=== PATIENT | male | born 1985 | race Caucasian/White ===

== ENCOUNTER 2023-10-12 14:08 | Outpatient (CLI) | payer OTHER, SELFPAY ==
--- NOTE | 2023-10-12 14:27 | XRR_ITS ---
PROCEDURE INFORMATION: Exam: XR Chest Exam date and time: 10/12/2023 2:55 PM Age: 38 years old Clinical indication: Screening exam; Other screening; Additional info: Regulated program monitoring TECHNIQUE: Imaging protocol: Radiologic exam of the chest. Views: 2 views. COMPARISON: No relevant prior studies available. FINDINGS: Lungs: Unremarkable. No consolidation. Pleural spaces: Unremarkable. No pleural effusion. No pneumothorax. Heart/Mediastinum: Unremarkable. No cardiomegaly. Bones/joints: Unremarkable. XR/XR chest 2V* [id number] IMPRESSION: No acute findings.
== END 2023-10-12 14:09 | disposition home or self-care (01) ==
LOC: RAD 14:22
PROVIDERS: PCP Family Medicine
DX: Z01.89 Encounter for other specified special examinations (principal); Z13.89 Encounter for screening for other disorder
CPT/HCPCS: 71046

== ENCOUNTER → 2023-11-24 08:45 | Outpatient (BNVA) | payer OTHER, SELFPAY | PROVIDERS: PCP Family Medicine; Visit Provider Family Medicine | DX: Z00.00 Encounter for general adult medical examination without abnormal findings (principal); Z13.6 Encounter for screening for cardiovascular disorders; R73.9 Hyperglycemia, unspecified | CPT/HCPCS: 80053; 80061; 83036; 85025 ==

== ENCOUNTER → 2023-11-27 07:41 | Outpatient (BNVA) | payer OTHER, MEDICAID, SELFPAY | PROVIDERS: PCP Family Medicine; Visit Provider Podiatrist Foot & Ankle Surgery | DX: E11.621 Type 2 diabetes mellitus with foot ulcer; L97.512 Non-pressure chronic ulcer of other part of right foot with fat layer exposed | CPT/HCPCS: 73630 ==

== ENCOUNTER 2023-12-12 12:38 | Outpatient (CLI) | payer OTHER, MEDICAID, SELFPAY ==
[2023-12-12 13:23] LABS: Glucose Fasting 114 mg/dL (74-109)
[2023-12-12 14:19] LABS: Glucose 1 Hour 182 mg/dL
== END 2023-12-12 12:39 | disposition home or self-care (01) ==
LOC: LAB 12:41
PROVIDERS: PCP Family Medicine; Visit Provider Thoracic Surgery (Cardiothoracic Vascular Surgery)
DX: E11.621 Type 2 diabetes mellitus with foot ulcer (principal); L97.509 Non-pressure chronic ulcer of other part of unspecified foot with unspecified severity
CPT/HCPCS: 82950

== ENCOUNTER → 2024-09-23 11:54 | Outpatient (BNVA) | payer OTHER, SELFPAY | DX: R73.9 Hyperglycemia, unspecified (principal) | CPT/HCPCS: 80053; 83036; 85025 ==

== ENCOUNTER 2025-03-06 14:40 | Inpatient (IN) | payer OTHER, SELFPAY ==
--- NOTE | 2025-03-06 14:44 | ED.C_ITS ---
HPI - Psych 2 General: Chief Complaint: Psychiatric Symptoms Stated Complaint: SI Time Seen by Provider: 03/06/25 14:40 Source: patient Mode of arrival: ambulatory Limitations: no limitations History of Present Illness: Patient is a 39-year-old male who presents today due to suicidal ideation. Patient states that he recently went through a break up and had a family member pass away-both have negatively affected his mental health and it has been progressively declining for the past 5 days. He is now having suicidal ideation. States he has thought about a plan for overdose. Reports previous OD attempt back in his 20s. He does admit to ingesting a white powder substance he got from a friend a few days ago in a suicide attempt. Denies HI. Patient notes that it he is supposed to be taking citalopram for baseline anxiety, however he has not been taking as prescribed. MD complaint: suicidal ideation and feels depressed Onset (ago): day(s) Duration: intermittent History of same: No Relieving factors: none Exacerbating factors: other (stress- of family member, recent break up) Context: not taking psychiatric medications Associated psychiatric symptoms: suicidal ideation and auditory hallucinations Associated symptoms: Reports depression and suicidal ideation; Deny homicidal ideation Treatments prior to arrival: none If self harm: admits thoughts of self harm Related Data Home Medications ?Medication ?Instructions ?Recorded ?Confirmed No Known Home Medications 03/06/2502/21 Allergies Allergy/AdvReac Type Severity Reaction Status Date / Time penicillin G Allergy Unknown Verified 09/23/24 11:26 Review of Systems 2 Const: Denies: fever(s), chills or body aches Card: Denies: chest pain or palpitations Resp: Denies: dyspnea GI: Denies: abdominal pain Skin/Breast: Denies: rash Neuro: Denies: headache(s) Psych: Reports: anxiety, depression and suicidal ideation; Denies: paranoia or homicidal ideation PFSH ED 2 PFSH: Medical History Erectile dysfunction Eczema Encounter to establish care Social anxiety disorder Surgical History History of appendectomy 2005 Family History Grandmother Diabetes Social History Smoking and tobacco/nicotine status: never used tobacco/nicotine Alcohol intake: current Alcohol intake frequency: few times a month Additional social history: works for [employer]. Physical Exam 2 Const: COMMON NORMALS: no acute distress, patient oriented x3, no limitations, alert and well nourished GENERAL APPEARANCE: anxious NUTRITIONAL APPEARANCE: obese ORIENTATION/CONSCIOUSNESS: Yes awake, Yes oriented to person, Yes oriented to place and Yes oriented to time Eye: GENERAL EYE: appearance normal, both eyes and all related structures Resp: COMMON NORMALS: normal respiratory effort and clear to auscultation bilaterally AUSCULTATION: clear to auscultation bilaterally Cardio: COMMON NORMALS: regular rate and regular rhythm RATE: regular rate RHYTHM: regular rhythm Extremity: GENERAL: Yes normal exam except as noted Neuro: DOUGLAS COMA SCALE: document GCS findings Douglas coma scale eye opening: Spontaneous Douglas coma scale verbal response: Orientated Douglas coma scale motor response: Obey commands Douglas coma scale total score: 15 COMMON NORMALS: patient oriented x3 SENSORIUM/ORIENTATION: Yes alert, Yes oriented to person, Yes oriented to place and Yes oriented to time Psych: COMMON NORMALS: mental status grossly normal, Normal thought process present, cooperative, activity/motor behavior normal, denies hallucinations and denies homicidal ideation APPEARANCE: Yes grossly normal ATTITUDE: Yes calm ACTIVITY/MOTOR BEHAVIOR: Yes appropriate eye contact SPEECH: Yes minimal and Yes soft MOOD & AFFECT: Yes depressed mood and Yes Flat affect present THOUGHT PROCESS: Normal thought process present THOUGHT CONTENT: Y es Suicidality present MEMORY/COGNITION: Yes memory grossly intact and Yes cognition grossly intact INSIGHT: Good insight present (Psych) JUDGEMENT: Good judgement present (Psych) Skin: COMMON NORMALS: no rashes or lesions noted GENERAL SKIN EXAM: no rashes or lesions noted Course 2 Consultations: Consultation #1: Dr. Ahmadi-accepts to NPU Vital Signs: Vital signs: Vital Signs Temperature 98.1 F 03/06/25 14:45 Pulse Rate 90 03/06/25 14:45 Respiratory Rate 16 03/06/25 14:45 Blood Pressure 163/100 03/06/25 14:45 Pulse Oximetry 99 03/06/25 14:45 Oxygen Delivery Me thod Room Air 03/06/25 14:45 MDM - Psych Medical Decision Making Patient is a 39-year-old male here for worsening depression and suicidal ideations. Reports previous suicide attempt a few days ago. He was placed on a 96-hour hold and will be admitted to NPU to Dr. Ahmadi for further evaluation. Medical Records I reviewed the patient's medical records. Lab Data I reviewed the patient's lab results. 03/06/25 14:52 03/06/25 14:52 Laboratory Results WBC 7.28 10^3/uL (3.29-11.43) 03/06/25 14:52 RBC 5.14 10^6/uL (3.85-5.65) 03/06/25 14:52 Hgb 15.00 g/dL (11.27-16.99) 03/06/25 14:52 Hct 44.5 % (37-53) 03/06/25 14:52 MCV 86.6 fl (82-101) 03/06/25 14:52 MCH 29.2 pg (27-33) 03/06/25 14:52 MCHC 33.7 g/dL (30-55) 03/06/25 14:52 RDW 13.2 % (12.1-15.1) 03/06/25 14:52 Plt Count 281 10^3/cmm (157-399) 03/06/25 14:52 MPV 9.3 fL (7.4-10.4) 03/06/25 14:52 Neut % (Auto) 65.9 % 03/06/25 14:52 Lymph % (Auto) 24.3 % 03/06/25 14:52 Cocke % (Auto) 6.5 % 03/06/25 14:52 Eos % (Auto) 2.7 % 03/06/25 14:52 Baso % (Auto) 0.3 % 03/06/25 14:52 Neut # (Auto) 4.80 10^3/uL (1.8-7.7) 03/06/25 14:52 Lymph # (Auto) 1.8 10^3/uL (0.8-4.8) 03/06/25 14:52 Cocke # (Auto) 0.5 10^3/uL (0.2-0.9) 03/06/25 14:52 Eos # (Auto) 0.2 10^3/uL (0.0-0.8) 03/06/25 14:52 Baso # (Auto) 0.0 10^3/uL (0.0-0.1) 03/06/25 14:52 Nucleated RBC % (auto) 0 % 03/06/25 14:52 Nucleated RBCs # 0.0 /100WBC 03/06/25 14:52 Sodium 139 mmol/L (136-145) 03/06/25 14:52 Potassium 3.6 mmol/L (3.5-5.1) 03/06/25 14:52 Chloride 101 mmol/L (98-107) 03/06/25 14:52 Carbon Dioxide 24 mmol/L (22-29) 03/06/25 14:52 Anion Gap 17.6 (5-19) 03/06/25 14:52 BUN 11 mg/dL (6-20) 03/06/25 14:52 Creatinine 0.7 mg/dL (0.7-1.2) 03/06/25 14:52 GFR Calculation 126.2 mL/min (90-130) 03/06/25 14:52 Glucose 95 mg/dL (65-115) 03/06/25 14:52 Calculated Osmolality 287 mOsm/kg (285-295) 03/06/25 14:52 Calcium 9.1 mg/dL (8.5-10.5) 03/06/25 14:52 Total Bilirubin 0.4 mg/dL (0.15-1.2) 03/06/25 14:52 AST 18 U/L (0-40) 03/06/25 14:52 ALT 24 U/L (0-41) 03/06/25 14:52 Alkaline Phosphatase 80 U/L (40-130) 03/06/25 14:52 Total Protein 7.8 g/dL (6.6-8.7) 03/06/25 14:52 Albumin 4.5 g/dL (3.5-5.2) 03/06/25 14:52 Globulin 3.3 g/dL (1.3-4.6) 03/06/25 14:52 Salicylates < 0.3 mg/dL (3-10) L 03/06/25 14:52 Acetaminophen < 5.0 ug/mL (10-30) L 03/06/25 14:52 Ethyl Alcohol < 10 mg/dL (0-10) 03/06/25 14:52 No radiology studies performed this visit Discharge Plan Discharge Patient Disposition: Admitted As Inpatient Clinical Impression: Suicidal ideation, Involuntary commitment Depression Qualifiers: Depression Type: major depressive disorder Major depression recurrence: u nspecified whether recurrent Active/Remission status: currently active Major depression episode severity: severe Psychotic features: without psychotic features Qualified Code(s): F32.2 - Major depressive disorder, single episode, severe without psychotic features Condition: Stable Prescriptions: No Action No Known Home Medications Referrals: Clau Stovall NP [Primary Care Provider] - Print Language: Bulgarian Coding 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
[2025-03-06 14:45] VITALS: BP 163/100; PULSE 90; RESP 16; TEMP 36.7; O2SAT 99; BMI 36.2
[2025-03-06 15:02] LABS: Basophils % 0.3 %; Eosinophils # 0.2 10^3/uL (0.0-0.8); Eosinophils % 2.7 %; Hematocrit 44.5 % (37-53); Lymphocytes # 1.8 10^3/uL (0.8-4.8); Lymphocytes % 24.3 %; Mean Corpuscular HGB Conc 33.7 g/dL (30-55); Mean Corpuscular Hemoglobin 29.2 pg (27-33); Mean Corpuscular Volume 86.6 fl (82-101); Mean Platelet Volume 9.3 fL (7.4-10.4); Monocytes # 0.5 10^3/uL (0.2-0.9); Monocytes % 6.5 %; Neutrophils % 65.9 %; Nucleated Red Blood Cells % 0 %; Platelet Count 281 10^3/cmm (157-399); Red Blood Count 5.14 10^6/uL (3.85-5.65); Red Cell Distribution Width 13.2 % (12.1-15.1); White Blood Count 7.28 10^3/uL (3.29-11.43)
--- NOTE | 2025-03-06 15:07 | PC.PHAR ---
Patient states he suppose to be taking medications but currently not taking anything. Patient was on Citalopram, Sildenafil, and Truvada.
[2025-03-06 15:19] LABS: Acetaminophen < 5.0 ug/mL (10-30); Alanine Aminotransferase 24 U/L (0-41); Albumin Level 4.5 g/dL (3.5-5.2); Alcohol Level < 10 mg/dL (0-10); Alkaline Phosphatase 80 U/L (40-130); Anion Gap 17.6 (5-19); Aspartate Amino Transferase 18 U/L (0-40); Blood Urea Nitrogen 11 mg/dL (6-20); Calcium 9.1 mg/dL (8.5-10.5); Carbon Dioxide 24 mmol/L (22-29); Chloride 101 mmol/L (98-107); Creatinine Clr Calc Pharmacy 186.9061; Globulin 3.3 g/dL (1.3-4.6); Glomerular Filtration Rate 126.2 mL/min (90-130); Glucose 95 mg/dL (65-115); Osmolality Calculated 287 mOsm/kg (285-295); Potassium 3.6 mmol/L (3.5-5.1); Salicylate < 0.3 mg/dL (3-10); Sodium 139 mmol/L (136-145); Total Bilirubin 0.4 mg/dL (0.15-1.2); Total Protein 7.8 g/dL (6.6-8.7)
[2025-03-06 16:07] VITALS: BP 151/96; PULSE 81; RESP 18; TEMP 37.2; O2SAT 97
[2025-03-06 16:11] LABS: Amphetamines Screen Urine Positive (Negative); Barbiturates Screen Urine Negative (Negative); Benzodiazepines Screen Urine Negative (Negative); Opiate Screen Urine Negative (Negative); THC Screen Urine Positive (Negative)
[2025-03-06 16:12] LABS: Cocaine Screen Urine Negative (Negative); PCP Screen Urine Negative (Negative)
--- NOTE | 2025-03-06 16:28 | PC.NURSE ---
96 hr rights reviewed with patient @3010 with assistance of [facility] business banking officer [place]. All education reviewed. Pt verbalized no questions or concerns to this HS. Patient copy was left @bedside with patient. Patient declined a drink or snack at this time. No further needs.
--- NOTE | 2025-03-06 18:20 | PC.NURSE ---
Admission assessment Patient brought himself into the hospital for evaluation for thoughts of suicide and an increase in depression. Patient reports that he attempted self-harm two days ago by drinking methamphetamine in his juice. Patient has attempted suicide when he was in his 20s by overdosing. Patient reports the cause of his stressors is an increase in stress at work at [employer], went through a break-up two weeks ago, and had a in his family. Patient says that he has lost desire to do anything over the past week. Patient used to be addicted to methamphetamine. About 12 years ago, patient was a frequent user. Patient does use meth occassionally. Patient smokes THC every few hours
--- NOTE | 2025-03-06 18:26 | PC.NURSE ---
Patient reports that he takes a medication for HIV prevention and a medication for anxiety. This nurse called [facility] in [place], but the pharmacy has already closed so unable to determine the name of this anxiolytic medication. Patient said that it is fine for him to go without the HIV prevention medication because he is not sexually active currently.
[2025-03-06 19:50] VITALS: BP 130/72; PULSE 80; RESP 18; O2SAT 100
[2025-03-07 06:00] VITALS: BP 151/74; PULSE 93; RESP 16; O2SAT 99
--- NOTE | 2025-03-07 08:40 | W.PM.NPUH&PS ---
Providers/Chief Complaint Admitting Physician: Teja Ahmadi MD Primary Care Provider: Clau Stovall NP Chief Complaint: SI HPI NPU History of Present Illness Scott Esqueda is a 39 year old male who presented to the emergency department on 03/06/2025 with complaints of suicidal ideation. He states that he had orally consumed what he thought was amphetamines with a plan to overdose on it. He reports recent stressors including a break-up with a boyfriend a few weeks ago and an unspecified in the family over the past 2 months. He reports that he has been sleeping excessively and repeat reports feeling chronically tired. He reports some loss of appetite and endorses anhedonia. He denied any history of chris. He had reported no previous suicide attempts. The patient had reported that he has been struggling with social anxiety disorder for many years of his life as he states that he struggles with being in crowds and reports that he often freezes and avoids people out of fear that he will be the center of attention. He states that he had been treated with citalopram at a dose of 40 mg daily but states that he stopped that medication 1 month ago. He had stated that the medication had not been helpful for his social anxiety although he does acknowledge that it is possible that it may have been helpful for depression. He reports that he often wishes to stay in bed all day. He reports that he has not been using illicit drugs or alcohol currently although he had reported having used methamphetamine in the past several years ago. He reports that he uses marijuana occasionally. He reports that he has been distracted by what he refers to as mumbling as he states that he hears a voice that sounds like a radio outside of his room all of the time. He reports that this sound has been present for several years and at times of worsening depression the sound of someone mumbling something to him he is more prominent. He had reported no prior treatment with antipsychotic agents. He has endorsed increased feelings of hopelessness and reports that he struggles with managing loneliness. He reports diminished interest in previously enjoyable activities. He does report that he struggles with chronic anxiety but reports that his anxiety in social situations is prominent. He did not endorse any history of panic attacks. Inpatient psychiatric history: None Outpatient psychiatric history: None reported as he has no history of psychotherapy. Previous medications include Celexa 40 mg daily 1 month ago. Substance abuse history: He had reported a past history of alcohol abuse. He had also reported a past history of methamphetamine abuse. He had reported no active drug use other than having ingested oral methamphetamine yesterday. He has no history of drug or alcohol treatment. Medical history: History of diabetic foot ulcers, type 2 diabetes Surgical history: Appendectomy Allergies: Penicillin Medications: None Legal history: None history: None Family psychiatric history: He reports a history of mood disorders on both sides of the family's he had reported that a maternal uncle had a history of schizophrenia as well. Social history: Patient reports no history of developmental delays. He reports that he was raised in an intact family in [facility]. He reports that he grew up in an intact family and reported no history of trauma during his childhood. He had reported that he was an anxious child. He had graduated high school and his parents live in [facility]. He had reported that he had previously been to another man and has no history of any children. He reports that his had after 3 years of marriage. He reports that he currently works for a [employer] in [place]. He reports that he currently lives alone and reports having few friends. Meds NPU Home Medications ?Medication ?Instructions ?Recorded ?Confirmed ?Last Taken ?Type No Known Home Medications 03/06/25 03/06/25 Unknown History Allergies Allergy/AdvReac Type Severity Reaction Status Date / Time penicillin G Allergy Unknown Verified 09/23/24 11:26 [facility] NPU PFS: Medical History Erectile dysfunction Eczema Encounter to establish care Social anxiety disorder Surgical History History of appendectomy 2005 Family History Grandmother Diabetes Social History Smoking and tobacco/nicotine status: never used tobacco/nicotine Alcohol intake: current Alcohol intake frequency: few times a month Additional social history: works for [employer]. Mental Status Exam MSE Comments: The patient is casually dressed overweight white male with fair hygiene and normal gait. He was friendly and cooperative on interview. His eye contact was fleeting with significant gaze avoidance appreciated. There was no clear evidence of stare out a piece. There was no evidence of any abnormal involuntary motor movements, tics, or tremors appreciated. His speech was normal in regards to rate, rhythm, and prosody with some diminished volume noted. His mood was described as depressed. His affect was restricted in range and mood congruent. He had endorsed hearing muffling sounds. He denied any visual hallucinations. There was no clear evidence of delusional thinking. His attention span appeared fair. His recent and remote memory were grossly intact. He was alert and oriented to person place time and situation. He had endorsed suicidal ideation. He had reported a plan to overdose on methamphetamine. He denied any homicidal ideation. His insight was poor. His judgment was poor. His impulse control appeared limited. Vitals/I&O/Wt Last Vital Signs Temp 98.9 F 03/06/25 16:07 Pulse 93 03/07/25 06:00 Resp 16 03/07/25 06:00 BP 151/74 03/07/25 06:00 Pulse Ox 99 03/07/25 06:00 O2 Del Method Room Air 03/06/25 16:08 Weight last 48 hrs Weight 117.934 kg Data NPU 03/06/25 14:52 03/06/25 14:52 A&P Assessment and plan (1) Unspecified psychosis: (2) Depression: Qualifiers: Active/Remission status: currently active Depression Type: major depressive disorder Major depression episode severity: severe Major depression recurrence: unspecified whether recurrent Psychotic features: without psychotic features Qualified Code(s): F32.2 - Major depressive disorder, single episode, severe without psychotic features (3) Social anxiety disorder: Plan 39-year-old male endorsing auditory hallucinations along with depression with history of suicide attempt by orally overdosing on amphetamine with history of depression, and social anxiety disorder. #1.? Engage patient in individual milieu and group therapy. #2?? Recommend sober living treatment at the highest level of care to which the patient is willing to commit #3??? Begin abilify 5 mg to target psychotic symptoms while initiation of zoloft to target depression and anxiety. #4?? TO-15 minute checks? #5?? Will attempt to gather collateral information PDMP PDMP Reviewed: Not Reviewed Attestations NPU Medical Necessity Statement*: Inpatient hospitalization is medically necessary and deemed to be the clinically appropriate intervention at this time. Medications will be adjusted and initiated as indicated.? The patient will be hospitalized for at least 2 midnights.? The patient?s likely length of stay is 4-6 days. ? Coding Level of Care Code Acute Code for Chg Fwd Diagnoses Unspecified psychosis F29 Depression F32.2 Active/Remission status: currently active Depression Type: major depressive disorder Major depression episode severity: severe Major depression recurrence: unspecified whether recurrent Psychotic features: without psychotic features Social anxiety disorder F40.10
[2025-03-07] MEDS: sertraline 50 mg Tablet 25 MG PO (13:36)
[2025-03-07 14:00] VITALS: BP 154/90; PULSE 73; RESP 18; TEMP 36.3; O2SAT 99
[2025-03-07] MEDS: trazodone 50 mg Tablet PO (19:51)
[2025-03-07] MEDS: ARIPiprazole 10 mg Tablet 5 MG PO (19:51)
[2025-03-07 20:10] VITALS: BP 159/80; PULSE 87; RESP 18; TEMP 36.4; O2SAT 99
[2025-03-08 06:00] VITALS: BP 109/70; PULSE 90; RESP 18; O2SAT 98
[2025-03-08] MEDS: sertraline 50 mg Tablet 25 MG PO (07:58)
--- NOTE | 2025-03-08 11:25 | P.NPUPN_ITS ---
Subjective NPU 2 Subjective: 39-year-old male with a history of depression and past polysubstance abuse admitted after endorsing suicidal ideation by ingesting unspecified quantity of oral methamphetamine. He had continued to report suicidal ideation. He had reported continued muffling sounds in his head. He had reported no prior history of treatment with antipsychotic medications. He had endorsed depression and continued social phobia as he avoided going to groups today. He had isolated on the milieu. He had been able to contract for safety here. He reported some feelings of sadness and hopelessness but reported that he was feeling a little better today.Patient had specified hearing muffled sounds in his head even in the absence of having episodes of depression. He had acknowledged that he had been clean off of methamphetamine and many illicit drugs or alcohol for several months now. Mental Status Exam 2 MSE Comments: The patient is casually dressed overweight white male with fair hygiene and normal gait. He was friendly and cooperative on interview. His eye contact was fleeting with significant gaze avoidance appreciated. There was no clear evidence of stereotypies. There was no evidence of any abnormal involuntary motor movements, tics, or tremors appreciated. His speech was normal in regards to rate, rhythm, and prosody with some diminished volume noted. His mood was described as depressed. His affect was restricted in range and mood congruent. He had endorsed hearing muffling sounds. He denied any visual hallucinations. There was no clear evidence of delusional thinking. His attention span appeared fair. His recent and remote memory were grossly intact. He was alert and oriented to person, place, time, and situation. He had endorsed suicidal ideation. He had reported a plan to overdose on methamphetamine. He denied any homicidal ideation. His insight was poor. His judgment was poor. His impulse control appeared limited. Vitals/I&O/Wt Last Vital Signs Temp 97.6 F 03/07/25 20:10 Pulse 90 03/08/25 06:00 Resp 18 03/08/25 06:00 BP 109/70 03/08/25 06:00 Pulse Ox 98 03/08/25 06:00 O2 Del Method Room Air 03/06/25 16:08 Weight last 48 hrs Weight 117.934 kg Data NPU 03/06/25 14:52 03/06/25 14:52 A&P Assessment and plan (1) Unspecified psychosis: (2) Depression: Qualifiers: Active/Remission status: currently active Depression Type: major depressive disorder Major depression episode severity: severe Major depression recurrence: unspecified whether recurrent Psychotic features: without psychotic features Qualified Code(s): F32.2 - Major depressive disorder, single episode, severe without psychotic features (3) Social anxiety disorder: Plan 39-year-old male endorsing auditory hallucinations along with depression with history of suicide attempt by orally overdosing on amphetamine with history of depression, and social anxiety disorder. #1.? Engage patient in individual milieu and group therapy. #2?? Recommend sober living treatment at the highest level of care to which the patient is willing to commit #3??? increase zoloft to 50mg on 03/10/25 and increase abilify to 10mg daily. #4?? TO-15 minute checks? #5?? Will attempt to gather collateral information PDMP PDMP Reviewed: Not Reviewed Involuntary Hold Information 2 Hold Status: Legal Status: 96 Hour Hold Date/Time Hold Expires: 03/10/2025 @ 1500 Attestations NPU 2 Medical Necessity Statement*: Inpatient hospitalization is medically necessary and deemed to be the clinically appropriate intervention at this time. Medications will be adjusted and initiated as indicated.? The patient?s likely length of stay is 4-6 days. ? Coding Level of Care Code Acute Code for Chg Fwd Diagnoses Unspecified psychosis F29 Depression F32.2 Active/Remission status: currently active Depression Type: major depressive disorder Major depression episode severity: severe Major depression recurrence: unspecified whether recurrent Psychotic features: without psychotic features Social anxiety disorder F40.10
[2025-03-08 14:00] VITALS: BP 129/81; PULSE 90; RESP 18; TEMP 36.8; O2SAT 100
[2025-03-08] MEDS: ARIPiprazole 10 mg Tablet PO (19:44)
[2025-03-08 20:39] VITALS: BP 109/76; PULSE 95; RESP 18; TEMP 37.1; O2SAT 99
[2025-03-09 06:00] VITALS: BP 112/73; PULSE 97; RESP 18; TEMP 37.1; O2SAT 98
[2025-03-09] MEDS: sertraline 50 mg Tablet 25 MG PO (08:12)
--- NOTE | 2025-03-09 12:22 | P.NPUPN_ITS ---
Subjective NPU 2 Subjective: 39-year-old male with a history of depression and past polysubstance abuse admitted after endorsing suicidal ideation by ingesting unspecified quantity of oral methamphetamine. Patient had reported feeling better today. He had reported continued struggles with social phobia. He had reported that the muffling sounds in his head or quieter. He had continued to isolate himself on the milieu. He had reported that he was feeling more hopeful and stated that his mood had been better. He reported no side effects from Zoloft. He had expressed interest in resuming psychotherapy. He had endorsed a past history of multiple depressive episodes but stated that anxiety had been more prominent recently. He had reported the pervasive presence of auditory hallucinations even in the absence of mood symptoms. Mental Status Exam 2 MSE Comments: The patient is casually dressed overweight white male with fair hygiene and normal gait. He was friendly and cooperative on interview. His eye contact was fleeting with significant gaze avoidance appreciated. There was no clear evidence of stereotypies. There was no evidence of any abnormal involuntary motor movements, tics, or tremors appreciated. His speech was normal in regards to rate, rhythm, and volume today. His mood was described as better. His affect was restricted. He had endorsed hearing muffling sounds but reported they were less frequent and less intense. He denied any visual hallucinations. There was no clear evidence of delusional thinking. His attention span appeared fair. His recent and remote memory were grossly intact. He was alert and oriented to person, place, time, and situation. He denied suicidal ideation. He denied any homicidal ideation. His insight was improving. His judgment was poor. His impulse control appeared limited. Vitals/I&O/Wt Last Vital Signs Temp 98.7 F 03/09/25 06:00 Pulse 97 03/09/25 06:00 Resp 18 03/09/25 06:00 BP 112/73 03/09/25 06:00 Pulse Ox 98 03/09/25 06:00 O2 Del Method Room Air 03/06/25 16:08 Data NPU 03/06/25 14:52 03/06/25 14:52 A&P Assessment and plan (1) Unspecified psychosis: (2) Depression: Qualifiers: Active/Remission status: currently active Depression Type: major depressive disorder Major depression episode severity: severe Major depression recurrence: unspecified whether recurrent Psychotic features: without psychotic features Qualified Code(s): F32.2 - Major depressive disorder, single episode, severe without psychotic features (3) Social anxiety disorder: Plan 39-year-old male endorsing auditory hallucinations along with depression with history of suicide attempt by orally overdosing on amphetamine with history of depression, and social anxiety disorder. #1.? Engage patient in individual milieu and group therapy. #2?? Recommend sober living treatment at the highest level of care to which the patient is willing to commit #3???continue zoloft 50mg in am, abilify 10mg daily. #4?? TO-15 minute checks? #5?? likely discharge tommorow. PDMP PDMP Reviewed: Not Reviewed Involuntary Hold Information 2 Hold Status: Legal Status: 96 Hour Hold Date/Time Hold Expires: 03/10/2025 @ 1500 Attestations NPU 2 Medical Necessity Statement*: Inpatient hospitalization is medically necessary and deemed to be the clinically appropriate intervention at this time. Medications will be adjusted and initiated as indicated.? The patient?s likely length of stay is 1-2 days. ? Coding Level of Care Code Acute Code for Chg Fwd Diagnoses Unspecified psychosis F29 Depression F32.2 Active/Remission status: currently active Depression Type: major depressive disorder Major depression episode severity: severe Major depression recurrence: unspecified whether recurrent Psychotic features: without psychotic features Social anxiety disorder F40.10
[2025-03-09 14:00] VITALS: BP 107/68; PULSE 101; RESP 17; TEMP 36.9; O2SAT 97
[2025-03-09] MEDS: ARIPiprazole 10 mg Tablet PO (20:18)
[2025-03-09 21:18] VITALS: BP 128/76; PULSE 89; RESP 18; TEMP 37.1; O2SAT 97
[2025-03-10 06:00] VITALS: BP 133/96; PULSE 82; RESP 17; TEMP 36.5; O2SAT 100
[2025-03-10] MEDS: sertraline 50 mg Tablet PO (08:13)
[2025-03-10 13:52] VITALS: BP 163/99; PULSE 83; RESP 16; TEMP 36.4; O2SAT 97
--- NOTE | 2025-03-10 16:39 | P.NPUDS_ITS ---
Diagnoses at Discharge Discharge Diagnosis (1) Unspecified psychosis: Status: Acute (2) Depression: Status: Acute Qualifiers: Active/Remission status: currently active Depression Type: major depressive disorder Major depression episode severity: severe Major depression recurrence: unspecified whether recurrent Psychotic features: without psychotic features Qualified Code(s): F32.2 - Major depressive disorder, single episode, severe without psychotic features (3) Social anxiety disorder: Status: Acute Reason for Visit Reason for Visit: SI Brief History: PI NPU History of Present Illness Scott Esqueda is a 39 year old male who presented to the emergency department on 03/06/2025 with complaints of suicidal ideation. He states that he had orally consumed what he thought was amphetamines with a plan to overdose on it. He reports recent stressors including a break-up with a boyfriend a few weeks ago and an unspecified in the family over the past 2 months. He reports that he has been sleeping excessively and repeat reports feeling chronically tired. He reports some loss of appetite and endorses anhedonia. He denied any history of chris. He had reported no previous suicide attempts. The patient had reported that he has been struggling with social anxiety disorder for many years of his life as he states that he struggles with being in crowds and reports that he often freezes and avoids people out of fear that he will be the center of attention. He states that he had been treated with citalopram at a dose of 40 mg daily but states that he stopped that medication 1 month ago. He had stated that the medication had not been helpful for his social anxiety although he does acknowledge that it is possible that it may have been helpful for depression. He reports that he often wishes to stay in bed all day. He reports that he has not been using illicit drugs or alcohol currently although he had reported having used methamphetamine in the past several years ago. He reports that he uses marijuana occasionally. He reports that he has been distracted by what he refers to as mumbling as he states that he hears a voice that sounds like a radio outside of his room all of the time. He reports that this sound has been present for several years and at times of worsening depression the sound of someone mumbling something to him he is more prominent. He had reported no prior treatment with antipsychotic agents. He has endorsed increased feelings of hopelessness and reports that he struggles with managing loneliness. He reports diminished interest in previously enjoyable activities. He does report that he struggles with chronic anxiety but reports that his anxiety in social situations is prominent. He did not endorse any history of panic attacks. Inpatient psychiatric history: None Outpatient psychiatric history: None reported as he has no history of psychotherapy. Previous medications include Celexa 40 mg daily 1 month ago. Substance abuse history: He had reported a past history of alcohol abuse. He had also reported a past history of methamphetamine abuse. He had reported no active drug use other than having ingested oral methamphetamine yesterday. He has no history of drug or alcohol treatment. Medical history: History of diabetic foot ulcers, type 2 diabetes Surgical history: Appendectomy Allergies: Penicillin Medications: None Legal history: None history: None Family psychiatric history: He reports a history of mood disorders on both sides of the family's he had reported that a maternal uncle had a history of schizophrenia as well. Social history: Patient reports no history of developmental delays. He reports that he was raised in an intact family in [place]. He reports that he grew up in an intact family and reported no history of trauma during his childhood. He had reported that he was an anxious child. He had graduated high school and his parents live in [facility] [facility]. He had reported that he had previously been to another man and has no history of any children. He reports that his had after 3 years of marriage. He reports that he currently works for a [employer] company in [place] [facility]. He reports that he currently lives alone and reports having few friends. Hospital Course Hospital Course He slowly acclimated to the individual, group and milieu therapies provided. He came to the hospital with significant psychosocial stressors including work and some challenges at home that led to an intentional ingestion. He was not on medication and was started on Zoloft which was increased to 50 mg p.o. daily at discharge and Abilify which was at 10 mg p.o. daily at discharge. He had a very positive response to these medications. The impact of those medications in the milieu led to a significant improvement compared to admission. He worked with the social work team for outpatient resources and follow-up and they achieved that prior to discharge. He was able to contract for safety outside of the hospital prior to discharge. During the hospitalization he had routine laboratory studies which were within normal limits except for few outliers. Additionally had a general medical evaluation which was also within normal limits and demonstrated no new acute processes. At the time of discharge he denied psychosis or lethality. His mood and anxiety were well-managed. The patient endorsed a plan to avoid all drugs of abuse and follow up with the aftercare recommendations of the treatment team. The patient was evaluated and deemed to be absent credible lethality and had achieved the maximum benefit from an inpatient hospitalization, and so was discharged. Involuntary Hold Information Hold Status: Legal Status: 96 Hour Hold Date/Time Hold Expires: 03/10/2025 @ 1500 Mental Status Exam MSE Comments: This is an obese white male in hospital scrubs with adequate grooming and limited eye contact. No abnormal movements. Cooperative with exam in no acute distress. Speech was normal rate and volume. Mood described as much better, affect congruent. Thought process organized. Thought content: Patient denied suicidal or homicidal ideation, there were no delusions reported or noted, he denied any auditory or visual hallucinations reporting that maybe he was having some muffled sounds but nothing like admission. Attention and concentration were intact and memory appeared reliable but none were formally tested. He is alert and oriented x 3. Insight and judgment are improving impulse control is limited but improving. Discharge Data Studies Completed and Pending: Laboratory Results WBC 7.28 10^3/uL (3.2 9-11.43) 03/06/25 14:52 RBC 5.14 10^6/uL (3.8 5-5.65) 03/06/25 14:52 Hgb 15.00 g/dL (11.27 -16.99) 03/06/25 14:52 Hct 44.5 % (37-53) 03/06/25 14:52 MCV 86.6 fl (82-101) 03/06/25 14:52 MCH 29.2 pg (27-33) 03/06/25 14:52 MCHC 33.7 g/dL (30-55) 03/06/25 14:52 RDW 13.2 % (12.1-15.1 ) 03/06/25 14:52 Plt Count 281 10^3/cmm (157 -399) 03/06/25 14:52 MPV 9.3 fL (7.4-10.4) 03/06/25 14:52 Neut % (Auto) 65.9 % 03/06/25 14:52 Lymph % (Auto) 24.3 % 03/06/25 14:52 Hickman % (Auto) 6.5 % 03/06/25 14:52 Eos % (Auto) 2.7 % 03/06/25 14:52 Baso % (Auto) 0.3 % 03/06/25 14:52 Neut # (Auto) 4.80 10^3/uL (1.8 -7.7) 03/06/25 14:52 Lymph # (Auto) 1.8 10^3/uL (0.8- 4.8) 03/06/25 14:52 Hickman # (Auto) 0.5 10^3/uL (0.2- 0.9) 03/06/25 14:52 Eos # (Auto) 0.2 10^3/uL (0.0- 0.8) 03/06/25 14:52 Baso # (Auto) 0.0 10^3/uL (0.0- 0.1) 03/06/25 14:52 Nucleated RBC % (a uto) 0 % 03/06/25 14:52 Nucleated RBCs # 0.0 /100WBC 03/06/25 14:52 Sodium 139 mmol/L (136-1 45) 03/06/25 14:52 Potassium 3.6 mmol/L (3.5-5 .1) 03/06/25 14:52 Chloride 101 mmol/L (98-10 7) 03/06/25 14:52 Carbon Dioxide 24 mmol/L (22-29) 03/06/25 14:52 Anion Gap 17.6 (5-19) 03/06/25 14:52 BUN 11 mg/dL (6-20) 03/06/25 14:52 Creatinine 0.7 mg/dL (0.7-1. 2) 03/06/25 14:52 GFR Calculation 126.2 mL/min (90- 130) 03/06/25 14:52 Glucose 95 mg/dL (65-115) 03/06/25 14:52 Calculated Osmolal ity 287 mOsm/kg (285- 295) 03/06/25 14:52 Calcium 9.1 mg/dL (8.5-10 .5) 03/06/25 14:52 Total Bilirubin 0.4 mg/dL (0.15-1 .2) 03/06/25 14:52 AST 18 U/L (0-40) 03/06/25 14:52 ALT 24 U/L (0-41) 03/06/25 14:52 Alkaline Phosphata se 80 U/L (40-130) 03/06/25 14:52 Total Protein 7.8 g/dL (6.6-8.7 ) 03/06/25 14:52 Albumin 4.5 g/dL (3.5-5.2 ) 03/06/25 14:52 Globulin 3.3 g/dL (1.3-4.6 ) 03/06/25 14:52 Salicylates < 0.3 mg/dL (3-10 ) L 03/06/25 14:52 Urine Opiates Scre en Negative ng/mL (N egative) 03/06/25 14:58 Acetaminophen < 5.0 ug/mL (10-3 0) L 03/06/25 14:52 Ur Barbiturates Sc reen Negative ng/mL (N egative) 03/06/25 14:58 Ur Phencyclidine S crn Negative ng/mL (N egative) 03/06/25 14:58 Ur Amphetamines Sc reen Positive ng/mL (N egative) H 03/06/25 14:58 U Benzodiazepines Scrn Negative ng/mL (N egative) 03/06/25 14:58 Urine Cocaine Scre en Negative ng/mL (N egative) 03/06/25 14:58 U Marijuana (THC) Screen Positive ng/mL (N egative) H 03/06/25 14:58 Ethyl Alcohol < 10 mg/dL (0-10) 03/06/25 14:52 Vitals: Last Vital Signs Temp 97.6 F 03/10/25 13:52 Pulse 83 03/10/25 13:52 Resp 16 03/10/25 13:52 BP 163/99 03/10/25 13:52 Pulse Ox 97 03/10/25 13:52 O2 Del Method Room Air 03/10/25 13:52 Discharge Plan Discharge Patient Disposition: Home Condition: Stable Prescriptions: New sertraline 50 mg Tablet 50 mg PO DAILY 30 Days Qty: 30 1RF aripiprazole 10 mg Tablet 10 mg PO 2000 30 Days Qty: 30 1RF Discharge Orders: Discharge Order (Routine); Ordered 03/10/25 Ordered By: Wilfrid Stovall Referrals: [facility] [Other] [facility] [Outside] Clau Stovall, [employer]ACHINE [employer] HELPER [Primary Care Provider] - Discharge Diet: Regular Discharge Activity: Resume usual activity Patient Instructions: Sertraline (By mouth) (Zoloft), Aripiprazole (By mouth) (Abilify, Abilify Discmelt), Depression (DC), Help Prevent Suicide (DC), Opioid Safety Discharge Attestations NPU Time Spent in Discharge Care*: less than 30 min Specific Discharge Activities: Specific discharge activities: educating patient, discussing with case liner/social workers/dc planners, documenting/other paperwork and evaluating patient/reviewing data Coding Level of Care Code Acute Code for Chg Fwd Diagnoses Unspecified psychosis F29 Depression F32.2 Active/Remission status: currently active Depression Type: major depressive disorder Major depression episode severity: severe Major depression recurrence: unspecified whether recurrent Psychotic features: without psychotic features Social anxiety disorder F40.10
[2025-03-10 16:49] VITALS: BP 163/99; PULSE 83; RESP 16; TEMP 36.4; O2SAT 97
--- NOTE | 2025-03-10 17:07 | PC.NURSE ---
this ghost writer spoke with pt mother and sister, both stated that some one would be with pt at all time. both feel he is ready to come home and appears to be doing alot better than when he was brought into hospital. pt sister states she will be staying with pt at his home in order to help pt with animals.
== END 2025-03-10 18:29 | disposition home or self-care (01) | DRG 885 ==
LOC: ER 15:34 → NP 15:46
PROVIDERS: Admitting Provider Psychiatry & Neurology Psychiatry; Emergency Provider Physician Assistant; Visit Provider Psychiatry & Neurology Psychiatry
DX: F29 Unspecified psychosis not due to a substance or known physiological condition (principal); R45.851 Suicidal ideations; F32.9 Major depressive disorder, single episode, unspecified; F40.10 Social phobia, unspecified; N52.9 Male erectile dysfunction, unspecified
CPT/HCPCS: 36415; 80053; 80306; 80307; 85025; 97150; 97165; 99285; J9999